=== PATIENT | male | born 1965 | race Caucasian/White ===

== ENCOUNTER 2018-08-23 13:51 | Emergency (ER) | payer OTHER ==
[2018-08-23] MEDS ORDERED: FLUCONAZOLE 100 MG TAB ONE (15:28)
[2018-08-23] MEDS ORDERED: HYDROCODONE/APAP 5/325 MG TAB ONE (15:28)
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
[2018-08-23 16:38] VITALS: BP 140/94; TEMP 97.3; O2SAT 97
== END 2018-08-23 15:55 | disposition home or self-care (01) ==
LOC: ER 13:51
DX: B35.6 Tinea cruris (principal); F17.210 Nicotine dependence, cigarettes, uncomplicated; Z79.82 Long term (current) use of aspirin; Z88.1 Allergy status to other antibiotic agents; Z88.8 Allergy status to other drugs, medicaments and biological substances
CPT/HCPCS: 99283

== ENCOUNTER 2018-09-17 19:35 | Emergency (ER) | payer OTHER ==
[2018-09-17 20:23] LABS: Absolute Lymphocytes (CBC) 1.1 K/uL (0.7-4.9); Absolute Monocytes 0.7 K/uL (0.1-1.3); Absolute Neutrophil 6.1 K/uL (1.8-8.0); Basophils % 0.6 % (0-1.3); Eosinophils % 3.2 % (0-4.4); Hematocrit 46.3 % (39.6-49.0); Lymphocytes % 13.9 % (15.3-44.8); MCH 32.7 pg (27.0-35.0); MCV 95.5 fL (80-100); MPV 9.7 fL (7.6-11.3); Monocytes % 8.5 % (3.3-12.3); RBC Red Blood Cell Count 4.85 M/uL (4.33-5.43)
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
[2018-09-17] MEDS ORDERED: NA CHLORIDE 0.9% 1,000 ML ONE (20:27)
[2018-09-17 20:44] LABS: Potassium 3.8 mmol/L (3.5-5.1)
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
[2018-09-17] MEDS ORDERED: HYDROCODONE/APAP 5/325 MG TAB ONE (21:31)
[2018-09-17 22:32] VITALS: BP 131/85; O2SAT 98
[2018-09-17 22:37] LABS: Urine Blood NEGATIVE (NEG); Urine Glucose NEGATIVE (NEG); Urine Protein TRACE (NEG); Urine Specific Gravity >1.030 (1.005-1.030)
== END 2018-09-17 22:18 | disposition home or self-care (01) ==
LOC: ER 19:35
DX: S66.921A Laceration of unspecified muscle, fascia and tendon at wrist and hand level, right hand, initial encounter (principal); V03.99XA Pedestrian with other conveyance injured in collision with car, pick-up truck or van, unspecified whether traffic or nontraffic accident, initial encounter; Z79.82 Long term (current) use of aspirin; Z88.1 Allergy status to other antibiotic agents
CPT/HCPCS: 36415; 71045; 73120; 80048; 81003; 85025; 86850; 86900; 86901; 96360; 99284; J7030

== ENCOUNTER 2019-05-26 10:43 | Emergency (ER) | payer OTHER ==
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
[2019-05-26] MEDS ORDERED: SMZ./TMP. 800/160 MG TABLET ONE (11:54)
[2019-05-26] MEDS ORDERED: MUPIROCIN 2% OINT 22GM TUBE TOP ONE (11:55)
[2019-05-26] MEDS ORDERED: HYDROCODONE/APAP 10/325 TAB ONE (11:55)
[2019-05-26 12:21] VITALS: BP 111/73; TEMP 97.8; O2SAT 100
== END 2019-05-26 12:15 | disposition home or self-care (01) ==
LOC: ER 10:43
DX: S91.114A Laceration without foreign body of right lesser toe(s) without damage to nail, initial encounter (principal); W22.8XXA Striking against or struck by other objects, initial encounter; Y92.480 Sidewalk as the place of occurrence of the external cause; Z88.1 Allergy status to other antibiotic agents; Z79.82 Long term (current) use of aspirin
CPT/HCPCS: 99283

== ENCOUNTER 2019-06-10 10:00 | Emergency (ER) | payer OTHER ==
[2019-06-10 11:25] LABS: Absolute Lymphocytes (CBC) 1.9 K/uL (0.7-4.9); Basophils % 0.6 % (0-1.3); Hematocrit 43.1 % (39.6-49.0); Lymphocytes % 30.2 % (15.3-44.8); MPV 9.2 fL (7.6-11.3); RBC Red Blood Cell Count 4.54 M/uL (4.33-5.43)
[2019-06-10 11:38] LABS: Potassium 4.1 mmol/L (3.5-5.1)
--- NOTE | 2019-06-10 12:19 | RAD REPORT ---
EXAM DESCRIPTION: RAD - Foot Right 3 View - 06/10/2019 11:36 am CLINICAL HISTORY: swelling, trauma to left 2nd toe COMPARISON: No comparisons FINDINGS: Significant swelling is seen along the dorsum of the foot. Prominent hallux valgus is seen . Deformity of the second toe at the level of the PIP joint is seen which may be related to a fractur e along the base of the middle phalanx. However, bony remodeling suggests at this fracture may not be acute.
--- NOTE | 2019-06-10 12:36 | RAD REPORT ---
EXAM DESCRIPTION: US - Extremity Venous Uni Ltd - 06/10/2019 11:41 am CLINICAL HISTORY: SWELLING Leg swelling and edema. COMPARISON: 3D SCR CRISTI BILAT W/CAD dated 03/25/2019; 3D DIAG UNI F/U dated 04/14/2018; 3D SCR CRISTI BILAT W/CAD dated 03/10/2018EXTREMITY NONVASCULAR dated 07/02/2014 FINDINGS: Right lower extremity venous system was interrogated with Doppler technique. Normal flow, compressibility and augmentation was noted. There is no DVT present. IMPRESSION: No evidence of right lower extremity deep venous thrombosis.
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
[2019-06-10 13:20] VITALS: TEMP 97.6
[2019-06-10 13:22] VITALS: O2SAT 100
[2019-06-10 13:24] VITALS: BP 118/74
== END 2019-06-10 13:13 | disposition home or self-care (01) ==
LOC: ER 10:00
DX: S92.514A Nondisplaced fracture of proximal phalanx of right lesser toe(s), initial encounter for closed fracture (principal); R60.9 Edema, unspecified; F17.210 Nicotine dependence, cigarettes, uncomplicated; W22.8XXA Striking against or struck by other objects, initial encounter; Y93.9 Activity, unspecified; Y92.9 Unspecified place or not applicable; Z88.1 Allergy status to other antibiotic agents
CPT/HCPCS: 36415; 80048; 83605; 84145; 85025; 93971; 99283

== ENCOUNTER 2020-05-14 20:13 | Emergency (ER) | payer OTHER ==
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
[2020-05-14] MEDS ORDERED: IBUPROFEN 400 MG TAB ONE (23:17)
[2020-05-14] MEDS ORDERED: TETANUS & DIPHTHERIA TOX,ADULT 0.5 ML VIAL ONE (23:18)
[2020-05-14 23:38] VITALS: BP 127/90; TEMP 98.5; O2SAT 97
--- NOTE | 2020-05-15 10:28 | RAD REPORT ---
EXAM DESCRIPTION: RAD - Hand Right 2 View - 05/14/2020 9:25 pm CLINICAL HISTORY: Right hand pain FINDINGS: Very limited examination secondary to difficulty with positioning No gross fracture or dislocation seen
== END 2020-05-14 23:29 | disposition home or self-care (01) ==
LOC: ER 20:13
PROC: 0JQJ0ZZ Repair Right Hand Subcutaneous Tissue and Fascia, Open Approach (ICD-10-PCS; principal; 2020-05-14)
DX: S61.411A Laceration without foreign body of right hand, initial encounter (principal); W19.XXXA Unspecified fall, initial encounter; Y93.9 Activity, unspecified; Y92.9 Unspecified place or not applicable; Z23 Encounter for immunization; Z88.1 Allergy status to other antibiotic agents; Z79.82 Long term (current) use of aspirin; F17.210 Nicotine dependence, cigarettes, uncomplicated
CPT/HCPCS: 90471; 90714; 99284

== ENCOUNTER 2021-01-19 00:48 | Emergency (ER) | payer OTHER ==
[2021-01-19 01:20] LABS: Absolute Lymphocytes (CBC) 2.3 K/uL (0.7-4.9); Basophils % 1.3 % (0-1.3); Hematocrit 48.2 % (39.6-49.0); MPV 9.6 fL (7.6-11.3); RBC Red Blood Cell Count 5.05 M/uL (4.33-5.43)
[2021-01-19] MEDS ORDERED: LEVALBUTEROL 1.25 MG/3 ML NEB ONE (01:26)
[2021-01-19] MEDS ORDERED: METHYLPREDNISOLONE 125 MG INJ ONE (01:26)
[2021-01-19 01:30] LABS: BUN Blood Urea Nitrogen 16 mg/dL (7-18); Bicarbonate 25 mmol/L (21-32); Glucose Level 125 mg/dL (74-106); NT PRO-BNP 12 pg/mL (<125); Sodium Level 140 mmol/L (136-145); Troponin (Emerg Dept Use Only) < 0.02 ng/mL (0.0-0.045)
[2021-01-19 02:18] LABS: SARS-COV-2 RT PCR NEGATIVE (NEGATIVE)
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
[2021-01-19] MEDS ORDERED: AZITHROMYCIN 250 MG TAB ONE (03:28)
--- NOTE | 2021-01-19 06:52 | EKG ---
Test Date: 2021-01-19 Test Time: 01:34:10 Principal Data Architect: MG MEASUREMENT RESULTS: Intervals: Rate: 101 HI: 126 QRSD: 84 QT: 342 QTc: 443 [place]: P: 55 HI: 126 QRS: 79 T: 12 INTERPRETIVE STATEMENTS: Sinus tachycardia Otherwise normal ECG Compared to ECG 07/07/2015 17:53:25 Sinus rhythm no longer present Short HI interval no longer present Electronically Signed On 01-19-21 06:51:21 CDT by Tyrell Reich
--- NOTE | 2021-01-19 11:51 | RAD REPORT ---
EXAM DESCRIPTION: Paot Single View01/19/2021 1:23 am COMPARISON: None. CLINICAL HISTORY: [facility] MAIN Cough;Dyspnea FINDINGS: A single AP view of the chest demonstrates a normal cardiomediastinal silhouette. Aortic a therosclerosis is present. No pneumothorax or pleural effusion. Mild bilateral perihilar opacities are present. Osseous structures are intact. IMPRESSION: Mild bilateral perihilar opacities favor mild pulmonary edema. Electronically signed by: Doc Beltrán MD 01/19/2021 1:28 AM CDT Due to temporary technical issues with the PACS/Fluency reporting system, reports are being signed by the in house radiologists without review as a courtesy to insure prompt reporting. The interpreting radiologist is fully responsible for the content of the report.
[2021-01-19 15:52] VITALS: TEMP 98
[2021-01-19 16:06] VITALS: BP 130/90; O2SAT 94
== END 2021-01-19 03:58 | disposition home or self-care (01) ==
LOC: ER 00:48
DX: J44.0 Chronic obstructive pulmonary disease with (acute) lower respiratory infection (principal); J22 Unspecified acute lower respiratory infection; F17.210 Nicotine dependence, cigarettes, uncomplicated; Z20.822 Contact with and (suspected) exposure to COVID-19; Z88.1 Allergy status to other antibiotic agents
CPT/HCPCS: 93005; 87040 ×2; 85025; 80048; 36415; 84484; 84145; 83880; 0240U; 71045; 96374; 99284; J2930

== ENCOUNTER 2021-05-02 15:05 | Emergency (ER) | payer OTHER ==
[2021-05-02] MEDS ORDERED: ONDANSETRON 4 MG (ODT) TAB ONE (15:41)
[2021-05-02] MEDS ORDERED: MORPHINE 2 MG/ML SYR ONE (15:41)
[2021-05-02] MEDS ORDERED: LIDOCAINE 1% MPF 5 ML VIAL ONE (15:48)
[2021-05-02] MEDS ORDERED: TETANUS & DIPHTHERIA TOX,ADULT 0.5 ML VIAL ONE (15:48)
--- NOTE | 2021-05-02 15:53 | RAD REPORT ---
EXAM DESCRIPTION: CT - Head Brain Wo Cont - 05/02/2021 3:45 pm COMPARISON: None. TECHNIQUE: Axial 5 mm thick images of the head were obtained without IV contrast. All CT scans are performed using dose optimization technique as appropriate and may include automated exposure control or mA/KV adjustment according to patient size. FINDINGS: No intracranial hemorrhage, mass, edema or shift of mid-line structures. No acute infarcti on changes seen. No abnormal extra-axial fluid collections. Mastoid air cells and visualized portions of the paranasal sinuses are clear. No acute bony findings. IMPRESSION: No acute intracranial abnormality. No skull fracture identified.
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
[2021-05-02] MEDS ORDERED: MORPHINE 4 MG/ML SYR ONE (17:27)
[2021-05-02 18:21] VITALS: BP 162/100; O2SAT 100
== END 2021-05-02 18:01 | disposition home or self-care (01) ==
LOC: ER 15:05
PROC: 0JQ10ZZ Repair Face Subcutaneous Tissue and Fascia, Open Approach (ICD-10-PCS; principal; 2021-05-02)
DX: S01.111A Laceration without foreign body of right eyelid and periocular area, initial encounter (principal); S60.512A Abrasion of left hand, initial encounter; V00.811A Fall from moving wheelchair (powered), initial encounter; Z23 Encounter for immunization; Z88.1 Allergy status to other antibiotic agents; Z86.73 Personal history of transient ischemic attack (TIA), and cerebral infarction without residual deficits
CPT/HCPCS: 70450; 90471; 90714; 96372; 99284; 12011; J2270

== ENCOUNTER 2021-09-30 01:49 | Emergency (ER) | payer OTHER ==
[2021-09-30 03:07] LABS: Absolute Lymphocytes (CBC) 1.7 K/uL (0.7-4.9); Basophils % 1.3 % (0-1.3); Hematocrit 42.8 % (39.6-49.0); Lymphocytes % 23.9 % (15.3-44.8); MPV 8.6 fL (7.6-11.3); RBC Red Blood Cell Count 4.42 M/uL (4.33-5.43)
[2021-09-30] MEDS ORDERED: NA CHLORIDE 0.9% 1,000 ML ONE (03:07)
[2021-09-30] MEDS ORDERED: MORPHINE 4 MG/ML SYR ONE ×2 (03:07→03:44)
[2021-09-30] MEDS ORDERED: ONDANSETRON 4 MG/2 ML VIAL ONE ×2 (03:07→03:44)
[2021-09-30 03:13] LABS: Protime INR 1.05
[2021-09-30 03:30] LABS: ALT/SGPT 37 U/L (12-78); AST/SGOT 21 U/L (15-37); Alkaline Phosphatase 82 U/L (45-117); BUN Blood Urea Nitrogen 14 mg/dL (7-18); Bicarbonate 26 mmol/L (21-32); Bilirubin Direct 0.1 mg/dL (0-0.2); Bilirubin Total 0.3 mg/dL (0.2-1.0); Glucose Level 119 mg/dL (74-106); Magnesium 2.3 mg/dL (1.8-2.4); NT PRO-BNP 11 pg/mL (<125); Potassium 3.9 mmol/L (3.5-5.1); Protein, Total 6.4 g/dL (6.4-8.2); Sodium Level 143 mmol/L (136-145); Troponin (Emerg Dept Use Only) < 0.02 ng/mL (0.0-0.045)
[2021-09-30 03:44] LABS: SARS-COV-2 RT PCR NEGATIVE (NEGATIVE)
[2021-09-30 04:48] LABS: Urine Blood Negative (Negative); Urine Glucose Negative (Negative); Urine Protein Trace (Negative); Urine Specific Gravity 1.025 (1.005-1.030)
[2021-09-30 05:08] LABS: Urine Bacteria 20-50 /HPF (NONE SEEN); Urine Mucus 2+ /HPF (NONE SEEN); Urine RBC <5 /HPF (NONE SEEN)
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
[2021-09-30] MEDS ORDERED: SMZ./TMP. 800/160 MG TABLET ONE (06:20)
[2021-09-30 07:08] VITALS: TEMP 98.4
[2021-09-30 07:10] VITALS: BP 119/88
[2021-09-30 07:12] VITALS: O2SAT 97
--- NOTE | 2021-09-30 07:48 | RAD REPORT ---
EXAM DESCRIPTION: RAD - Chest Single View - 09/30/2021 2:53 am CLINICAL HISTORY: COUGH COMPARISON: Chest Pa And Lat (2 Views) dated 05/31/2021; Chest Single View dated 01/19/2021; Chest Sing le View dated 09/17/2018; Chest Pa And Lat (2 Views) dated 07/24/2017 FINDINGS: Lines: None. Lungs: Hazy diffuse opacities in the right lung. Pleural: No significant pleural effusions or pneumothorax. Cardiac: The heart size is within normal limits. Bones: No acute fractures. Other: IMPRESSION: Hazy diffuse opacities in the right lung could represent pneumonia in the proper clinica l setting.
--- NOTE | 2021-09-30 18:35 | RAD REPORT ---
EXAM DESCRIPTION: CT - Head C Spine Cap Deisy Ruiz - 09/30/2021 6:27 am COMPARISON: None. CLINICAL HISTORY: [facility] MAIN PAIN TECHNIQUE: Axial images were obtained from skull base to vertex without intravenous contrast. Imag es viewed on bone and brain windows. Multiplanar reformats were performed. Automated exposure contr ol was utilized on this examination as a dose lowering technique. FINDINGS: Brain parenchyma, ventricles, dura, meninges, and extra-axial spaces: Ventricles and sulci are normal. No abnormal attenuation of brain parenchyma is present. No acute intracranial hemor rhage or abnormal extra-axial fluid collections are present. Vascular structures: No hyperdense arteries or veins. Calvarium, mastoid air cells, paranasal sinuses and orbits: The calvarium is normal. Small right elidia etal scalp contusion. Small left mastoid effusion. Visualized paranasal sinuses are unremarkable. Orb ital structures are unremarkable. EXAM DESCRIPTION: CT Cervical Spine COMPARISON: None. CLINICAL HISTORY: [facility] MAIN PAIN TECHNIQUE: Axial CT images were obtained through the entire cervical spine without contrast. Sagit nima and coronal reconstructions are provided. Automated exposure control was utilized on this examina tion as a dose lowering technique. FINDINGS: Vertebrae: Vertebral statures and alignment are normal. A small os odontoideum is noted. No acute fracture, dislocation or destructive osseous process is present. Spinal canal, foramina, and facet joints: Greatest spinal canal stenosis is severe at C5-C6 due to disc osteophyte complex. Greatest foraminal stenoses are severe at right C4, right C5, right C6, right C7, and right C8 due to uncovertebral and facet hypertrophy. Paraspinous soft-tissues: Normal. Other Findings: Carotid atherosclerosis. EXAM DESCRIPTION: CT Chest, Abdomen, and Pelvis COMPARISON: None. CLINICAL HISTORY: [facility] MAIN PAIN TECHNIQUE: CT images through the chest, abdomen, and pelvis following IV contrast. Multiplanar refor mats. Automated exposure control was utilized on this examination as a dose lowering technique. CT CHEST FINDINGS: Heart and mediastinum: Heart size is normal. No lymphadenopathy. Vascular: Unremarkable. Thyroid gland: Visualized portions are normal. Lungs: Clear. Airways: No filling defects. No bronchiectasis. Pleura: No pneumothorax. No significant pleural effusion. Musculoskeletal and soft tissues: Within normal limits for age. CT ABDOMEN & PELVIS FINDINGS: Liver: Normal. Gallbladder and biliary: Normal gallbladder. Unremarkable biliary tree. Pancreas: Normal. Spleen: Normal. Kidneys and adrenal glands: 1.6 cm right adrenal myelolipoma. Mild left adrenal hyperplasia. Small le ft renal cyst. Stomach and Small Bowel: Large hiatal hernia. Normal small bowel. Urinary bladder: Normal. Prostate/Male Urogenital: Normal. Colon and Appendix: The colon is unremarkable. No evidence of appendicitis. Peritoneal cavity: No ascites or free air. Retroperitoneum and lymph nodes: Normal. Vascular: Moderate multivessel atherosclerosis. Musculoskeletal and soft tissues: Soft tissues are unremarkable. Lumbar spondylosis is present. Sev ere degenerative changes of the left hip. No aggressive bone lesions. No compression fracture. IMPRESSION: HEAD 1. No acute intracranial abnormality. 2. Small right parietal scalp contusion. C-SPINE IMPRESSION: No acute findings of the cervical spine. CHEST IMPRESSION: No acute chest findings. ABDOMEN AND PELVIS IMPRESSION: 1. No acute intra-abdominal abnormality. 2. 1.6 cm right adrenal myelolipoma. 3. Large hiatal hernia. Electronically signed by: Doc Beltrán MD 09/30/2021 5:49 AM LOCK ASSEMBLER Due to temporary technical issues with the PACS/Fluency reporting system, reports are being signed by the in house radiologists without review as a courtesy to insure prompt reporting. The interpreting radiologist is fully responsible for the content of the report.
== END 2021-09-30 06:53 | disposition home or self-care (01) ==
LOC: ER 01:49
DX: N39.0 Urinary tract infection, site not specified (principal); R05.9 Cough, unspecified; Q40.1 Congenital hiatus hernia; W18.30XA Fall on same level, unspecified, initial encounter; Z20.822 Contact with and (suspected) exposure to COVID-19; Z72.0 Tobacco use; Z71.6 Tobacco abuse counseling; Z88.1 Allergy status to other antibiotic agents
CPT/HCPCS: 96361; 93005; 87040 ×2; 87088; 85025; 87086; 80048; 36415; 83735; 85610; 80076; 83605; 84484; 84145; 83880; 0241U; 70450; 72125; 71260; 74177; 71045; 96375; 96374; 99285; Q9967; J7030; J2405 ×2; 81003; 81015

== ENCOUNTER 2021-11-18 04:09 | Emergency (ER) | payer OTHER ==
[2012-07-03 14:07] VITALS: BP 108/68
[2021-11-18] MEDS ORDERED: ACETAMINOPHEN 500 MG TAB ONE (04:39)
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
--- NOTE | 2021-11-19 22:01 | RAD REPORT ---
EXAM DESCRIPTION: RAD - Knee Right 3 View - 11/18/2021 5:13 am CLINICAL HISTORY: Fall COMPARISON: None. FINDINGS: 3 views of the right knee. No acute fracture or dislocation. Normal osseous mineralization . 3 compartment joint space narrowing and marginal osteophytosis. Mild 3 compartment joint space narr owing and marginal osteophytosis. IMPRESSION: 1. No acute fracture or dislocation. Electronically signed by: Mario Duron 11/18/2021 5:45 AM MEDICAL BILLING SERVICE Due to temporary technical issues with the PACS/Fluency reporting system, reports are being signed by the in house radiologists without review as a courtesy to insure prompt reporting. The interpreting radiologist is fully responsible for the content of the report.
--- NOTE | 2021-11-19 22:02 | RAD REPORT ---
EXAM DESCRIPTION: RAD - Knee Left 3 View - 11/18/2021 5:13 am CLINICAL HISTORY: The patient is 56 years old and is Male; fall TECHNIQUE: Three views of the left knee. COMPARISON: No relevant prior studies available. FINDINGS: Bones/joints: Bipartite patella. No joint effusion. No acute fracture. No dislocation. Soft tissues: Unremarkable. IMPRESSION: No acute osseous findings. Electronically signed by: Niecy Anthony MD 11/18/2021 5:45 AM CASINO WORKER Due to temporary technical issues with the PACS/Fluency reporting system, reports are being signed by the in house radiologists without review as a courtesy to insure prompt reporting. The interpreting radiologist is fully responsible for the content of the report.
== END 2021-11-18 07:30 | disposition home or self-care (01) ==
LOC: ER 04:09
DX: S80.02XA Contusion of left knee, initial encounter (principal); S80.01XA Contusion of right knee, initial encounter; W05.0XXA Fall from non-moving wheelchair, initial encounter; I69.351 Hemiplegia and hemiparesis following cerebral infarction affecting right dominant side; F17.210 Nicotine dependence, cigarettes, uncomplicated; Z88.1 Allergy status to other antibiotic agents
CPT/HCPCS: 99284

== ENCOUNTER 2022-01-03 22:37 | Emergency (ER) | payer OTHER ==
[2022-01-03 23:36] LABS: Absolute Lymphocytes (CBC) 1.9 K/uL (0.7-4.9); Hematocrit 46.6 % (39.6-49.0); Lymphocytes % 20.3 % (15.3-44.8); MPV 8.7 fL (7.6-11.3); RBC Red Blood Cell Count 4.93 M/uL (4.33-5.43)
[2022-01-04] MEDS ORDERED: MORPHINE 2 MG/ML SYR ONE ×2 (00:32→01:28)
[2022-01-04] MEDS ORDERED: ONDANSETRON 4 MG/2 ML VIAL ONE (00:33)
[2022-01-04 00:40] LABS: ALT/SGPT 40 U/L (12-78); AST/SGOT 19 U/L (15-37); Albumin 3.8 g/dL (3.4-5.0); Alkaline Phosphatase 103 U/L (45-117); BUN Blood Urea Nitrogen 16 mg/dL (7-18); Bicarbonate 25 mmol/L (21-32); Bilirubin Direct 0.1 mg/dL (0-0.2); Bilirubin Total 0.4 mg/dL (0.2-1.0); Glucose Level 121 mg/dL (74-106); Potassium 4.1 mmol/L (3.5-5.1); Protein, Total 7.3 g/dL (6.4-8.2); Sodium Level 139 mmol/L (136-145)
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
[2022-01-04 03:14] VITALS: TEMP 97.8
[2022-01-04 03:17] VITALS: BP 155/112; O2SAT 99
--- NOTE | 2022-01-04 12:27 | RAD REPORT ---
EXAM DESCRIPTION: RAD - Knee Left 3 View - 01/03/2022 11:51 pm CLINICAL HISTORY: 56 years, Male, PAIN COMPARISON: 11/18/2021 FINDINGS: 3 X-ray views of the left knee (Frontal, lateral and oblique views) were performed. There is no evidence for fracture or dislocation. Again identified is the presence of a bipartite pat helga with a small component along the upper lateral aspect. Minimal spur formation along the inferior aspect of the patella within the site of insertion of the infrapatellar tendon. There are no gross i ntraosseous lesions. No gross soft tissue abnormality is identified. There is no joint effusion. There is no periostitis. IMPRESSION: Bipartite patella. No acute bony abnormality. Electronically signed by: Jeremías Castro MD 01/04/2022 12:05 AM CDT Due to temporary technical issues with the PACS/Fluency reporting system, reports are being signed by the in house radiologists without review as a courtesy to insure prompt reporting. The interpreting radiologist is fully responsible for the content of the report.
--- NOTE | 2022-01-04 12:54 | RAD REPORT ---
EXAM DESCRIPTION: CT - Chest Abdomen Pelvis W Cont - 01/04/2022 6:02 am CLINICAL HISTORY: 56 years, Male, weak, repeated falls COMPARISON: 09/30/2021. TECHNIQUE: Contrast-enhanced images of the chest, abdomen and pelvis were performed utilizing 5 mm s lice thickness at 5 mm interval reconstruction from the lung apices to the ischial tuberosities after the administration of IV contrast. In addition multiplanar reformats in the coronal and sagittal plane were obtained and reviewed. This exam was performed according to our departmental dose-optimization protocol, which includes auto mated exposure control, adjustment of the mA and/or kV according to patient size and/or use of iterat tapan reconstruction technique. FINDINGS: The study is again compromised due to right upper extremity within the rpwkz-xh-babk imagi ng creating streak artifact limiting diagnostic value Chest: The lung parenchyma demonstrate minimal compressive atelectatic changes. Slight decreased lung volume. Large size hiatal hernia with fundus of the stomach within the lower chest cavity. No signif icant pulmonary nodules/or masses are identified. The trachea mainstem bronchus demonstrate to unremarkable. There is no pleural/upper cardia effusions . The thoracic aorta demonstrate no evidence for significant dissection and/or aneurysm. The heart is n ot enlarged. There are no significant coronary artery calcifications. There is no significant mediastinal or and/or hilar lymphadenopathy. The axillary regions demonstrate to be clear. The bone windows demonstrate mild diffuse bony neutropenia. Visualized portions of the clavicles, hum eral heads and proximal humerus demonstrate to be within normal limits. Bilateral ribs and thoracic spine and sternum demonstrate to be within normal limits allowing for pat ient positioning. No definitive evidence for acute bony injuries. Abdomen and pelvis: The liver demonstrate slight decreased attenuation suggesting mild fatty infiltra tion. Otherwise liver , gallbladder, pancreas, spleen and left adrenal glanddemonstrate to be unremar kable, no focal lesions are noted. Again there is a right adrenal myelolipoma. The kidneys demonstrate normal uptake of contrast media. No evidence for nephrolithiasis and/or hydro nephrosis. There is a lower pole left renal cyst measuring 2 cm on image 30/92. Grossly the unopacified stomach, small bowel and large bowel demonstrate to be within normal limits. There is no evidence for bowel dilatation/or free air. There is mild fecal stasis. The appendix w as not visualized although no significant inflammatory changes are seen within the right lower quadra nt. The urinary bladder demonstrate to be unremarkable. The prostate gland is normal. The aorta demon strate minimal atherosclerotic disease extending into the aortic bifurcation.. There is no retroper itoneal lymphadenopathy. There is no evidence for ascites/or retroperitoneal hemorrhage. The bone windows demonstrate demonstrate no evidence for significant compression deformities within t he lumbar spine. There is degenerative changes at L4/L5. Pelvic bones demonstrate to be within normal limits. Significant degenerative changes are seen within the left hip joint. IMPRESSION: The study is again compromised due to right upper extremity within the erafu-ms-xkov dion ging creating streak artifact limiting diagnostic value. No definitive evidence for acute bony injuries. Large size hiatal hernia with fundus of the stomach within the lower chest cavity. Mild fatty infiltration of the liver. Right adrenal myelolipoma. 2 cm lower pole left renal cyst. Significant degenerative changes within the left hip joint. No significant interval change in compari son with prior study. Electronically signed by: Jeremías Castro MD 01/04/2022 1:39 AM CDT Due to temporary technical issues with the PACS/Fluency reporting system, reports are being signed by the in house radiologists without review as a courtesy to insure prompt reporting. The interpreting radiologist is fully responsible for the content of the report.
--- NOTE | 2022-01-04 13:59 | RAD REPORT ---
EXAM DESCRIPTION: RAD - Chest Single View - 01/03/2022 11:51 pm CLINICAL HISTORY: 56 years, Male, weak COMPARISON: None. FINDINGS: Single view of the chest was obtained portable. No prior films are available for compariso n. At presence of right upper activity within the cnvqh-er-qnlr imaging limits the evaluation. Lung volume is slightly decreased. The heart demonstrate to be within normal limits. There is minimal int imal aortic arch calcification. No significant pleural effusions and/or large consolidations. The res t of the soft tissue and bony structures demonstrate to be unremarkable. IMPRESSION: No significant focal areas of acute airspace disease. Electronically signed by: Jeremías Castro MD 01/04/2022 12:07 AM CDT Due to temporary technical issues with the PACS/Fluency reporting system, reports are being signed by the in House radiologists without review as a courtesy to insure prompt reporting. The interpreting radiolog ist is fully responsible for the content of the report.
--- NOTE | 2022-01-08 08:32 | EKG ---
Test Date: 2022-01-03 Test Time: 23:51:35 Horse Buyer: CATHY MEASUREMENT RESULTS: Intervals: Rate: 83 [place]: 128 QRSD: 76 QT: 360 QTc: 423 [place]: P: 63 [place]: 128 QRS: 79 T: 31 INTERPRETIVE STATEMENTS: Normal sinus rhythm Normal ECG Compared to ECG 09/30/2021 02:57:23 No significant changes Electronically Signed On 01-08-22 08:24:01 CDT by Tyrell Reich
== END 2022-01-04 02:51 | disposition home or self-care (01) ==
LOC: ER 22:37
DX: M25.562 Pain in left knee (principal); W18.30XA Fall on same level, unspecified, initial encounter; Z86.73 Personal history of transient ischemic attack (TIA), and cerebral infarction without residual deficits; Z88.1 Allergy status to other antibiotic agents
CPT/HCPCS: 93005; 85025; 80048; 36415; 80076; 84484; 71260; 74177; 71045; 73562; 96375; 96374; 99284; Q9967; J2270 ×2; J2405

== ENCOUNTER 2022-01-19 20:46 | Inpatient (IN) | payer OTHER ==
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
[2022-01-19] MEDS ORDERED: NA CHLORIDE 0.9% 1,000 ML ONE (21:35)
[2022-01-19] MEDS ORDERED: ONDANSETRON 4 MG/2 ML VIAL ONE (21:47)
[2022-01-19] MEDS ORDERED: MORPHINE 4 MG/ML SYR ONE ×2 (21:47→22:19)
[2022-01-19 22:03] LABS: Absolute Lymphocytes (CBC) 2.2 K/uL (0.7-4.9); Hematocrit 47.5 % (39.6-49.0); MPV 9.1 fL (7.6-11.3); RBC Red Blood Cell Count 5.06 M/uL (4.33-5.43)
[2022-01-19 22:20] LABS: Potassium 3.8 mmol/L (3.5-5.1)
[2022-01-19 22:29] LABS: Protime INR 1.02
[2022-01-19] MEDS ORDERED: TETANUS & DIPHTHERIA TOX,ADULT 0.5 ML VIAL ONE (22:39)
[2022-01-20] MEDS ORDERED: FENTANYL CITR 100 MCG/2 ML ONE (00:11)
[2022-01-20] MEDS ORDERED: NA CHLORIDE 0.9% 1,000 ML ONE ×2 (00:21→05:25)
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
[2022-01-20] MEDS ORDERED: HYDROCODONE/APAP 7.5/325 MG TAB ONE (01:02)
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
[2022-01-20] MEDS ORDERED: HYDROMORPHONE HCL 1 MG/ML INJ ONE (01:35)
[2022-01-20] MEDS ORDERED: DIPHENHYDRAMINE 50 MG/ML VIAL ONE (01:53)
[2022-01-20] MEDS ORDERED: ONDANSETRON 4 MG/2 ML VIAL IV PRN (02:58)
[2022-01-20] MEDS ORDERED: MORPHINE 2 MG/ML SYR ONE (04:24)
[2022-01-20] MEDS: MORPHINE 2 MG/ML SYR IV PRN ×2 (04:30→13:39)
[2022-01-20 05:06] LABS: SARS-COV-2 RT PCR NEGATIVE (NEGATIVE)
[2022-01-20 05:12] LABS: Absolute Lymphocytes (CBC) 1.3 K/uL (0.7-4.9); Hematocrit 45.8 % (39.6-49.0); Lymphocytes % 13.3 % (15.3-44.8); RBC Red Blood Cell Count 4.86 M/uL (4.33-5.43)
[2022-01-20 05:24] LABS: Albumin 3.7 g/dL (3.4-5.0); Bilirubin Total 0.6 mg/dL (0.2-1.0); Potassium 4.2 mmol/L (3.5-5.1)
[2022-01-20 05:42] VITALS: BMI 25.6
[2022-01-20] MEDS ORDERED: HYDROMORPHONE HCL 1 MG/ML INJ IV ONE (06:01)
[2022-01-20] MEDS ORDERED: HYDROMORPHONE HCL 0.5 MG/0.5 ML INJ ONE ×2 (06:06→06:12)
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
[2022-01-20] MEDS: MORPHINE 4 MG/ML SYR IV PRN ×2 (17:20→21:21)
[2022-01-20] MEDS ORDERED: ALBUTEROL 2.5 MG/3 ML NEB SOL NEB PRN (19:56)
[2022-01-20] MEDS: NICOTINE 21 MG/PAT TD SCH (21:21)
[2022-01-21] MEDS: MORPHINE 4 MG/ML SYR IV PRN ×2 (01:40→05:52)
[2022-01-21] MEDS: HYDROCODONE/APAP 7.5/325 MG TAB PO PRN ×2 (02:38→08:09)
[2022-01-21 06:31] LABS: Absolute Lymphocytes (CBC) 1.8 K/uL (0.7-4.9); Hematocrit 38.3 % (39.6-49.0); Lymphocytes % 23.7 % (15.3-44.8); MPV 8.4 fL (7.6-11.3)
[2022-01-21 06:50] LABS: ALT/SGPT 38 U/L (12-78); AST/SGOT 39 U/L (15-37); Albumin 3.1 g/dL (3.4-5.0); Alkaline Phosphatase 69 U/L (45-117); BUN Blood Urea Nitrogen 10 mg/dL (7-18); Bicarbonate 23 mmol/L (21-32); Bilirubin Total 0.6 mg/dL (0.2-1.0); Glucose Level 107 mg/dL (74-106); Potassium 3.8 mmol/L (3.5-5.1); Protein, Total 5.8 g/dL (6.4-8.2); Sodium Level 138 mmol/L (136-145)
[2022-01-21] MEDS: NICOTINE 21 MG/PAT TD SCH (08:07)
[2022-01-21 09:07] VITALS: O2SAT 92
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
[2022-01-21 12:58] VITALS: BP 134/83; TEMP 99
--- NOTE | 2022-01-23 08:34 | EKG ---
Test Date: 2022-01-19 Test Time: 23:53:57 Transfer Table Operator Helper: NEAL MEASUREMENT RESULTS: Intervals: Rate: 116 LA: 132 QRSD: 80 QT: 330 QTc: 458 [place]: P: 54 LA: 132 QRS: 112 T: 14 INTERPRETIVE STATEMENTS: Sinus tachycardia Left posterior fascicular block Abnormal ECG Compared to ECG 01/03/2022 23:51:35 Left posterior fascicular block now present Sinus rhythm no longer present Electronically Signed On 01-23-22 08:28:30 CDT by Tyrell Reich
== END 2022-01-21 15:19 | disposition home or self-care (01) | DRG 185 ==
LOC: ER 20:46 → ERHOLD 01-20 00:57 → 2ND 01-20 08:44 → OBSVTOIN 01-21 13:35
PROVIDERS: ADMIT Surgery; ATTEND Surgery
PROC: 0HQ0XZZ Repair Scalp Skin, External Approach (ICD-10-PCS; principal; 2022-01-21)
DX: S22.42XA Multiple fractures of ribs, left side, initial encounter for closed fracture (principal); E11.65 Type 2 diabetes mellitus with hyperglycemia; D72.829 Elevated white blood cell count, unspecified; F17.200 Nicotine dependence, unspecified, uncomplicated; S01.01XA Laceration without foreign body of scalp, initial encounter; S01.81XA Laceration without foreign body of other part of head, initial encounter; V09.9XXA Pedestrian injured in unspecified transport accident, initial encounter; Z88.1 Allergy status to other antibiotic agents; Z60.2 Problems related to living alone; Z99.3 Dependence on wheelchair; Z88.0 Allergy status to penicillin; Z79.899 Other long term (current) drug therapy; Z20.822 Contact with and (suspected) exposure to COVID-19
CPT/HCPCS: 0240U; 36415; 70450; 71045; 71260; 72125; 74177; 80048; 80053; 85025; 85610; 85730; 86850; 86900; 86901; 90471; 90714; 93005; 94010; 96361; 96374; 96375; 97161; 97530; 99285; G0378; J1170; J1200; J2270; J2405; J3010; J7030; Q9967

== ENCOUNTER 2022-02-06 07:43 | Emergency (ER) | payer OTHER ==
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
[2022-02-06 13:07] VITALS: BP 132/98; TEMP 97.8; O2SAT 98
== END 2022-02-06 08:32 | disposition home or self-care (01) ==
LOC: ER 07:43
DX: Z48.02 Encounter for removal of sutures (principal)
CPT/HCPCS: 99281